=== PATIENT | female | born 1980 | race Caucasian/White ===

== ENCOUNTER → 2018-01-12 | Outpatient (CLI) | payer BC ==
--- NOTE | 2018-01-12 15:46 | RADIOLOGY REPORT (SQ) ---
EXAM DESCRIPTION: NM HIDA SCAN WITH CCK COMPLETED DATE/TIME: 01/12/2018 3:35 pm REASON FOR STUDY: OTHER SPECIFIED DISEASES OF GALLBLADDER K82.8 OTHER SPECIFIED DISEASES OF GALLBLA DDER COMPARISON: None. RADIONUCLIDE AND DOSE: DOSAGE RADIONUCLIDE: 5.37 millicuries Tc99m Mebrofenin. DOSAGE CCK: 1.2 micrograms. DOSAGE MORPHINE: Not required. The route of agent administration: Intravenous TECHNIQUE: Serial imaging right upper quadrant up to 60 minutes following injection of radionuclide. CCK injected after gallbladder visualized. LIMITATIONS: None. FINDINGS: LIVER: Normal visualization without areas of photopenia. INTRAHEPATIC BILE DUCTS: Normal size and no delay in visualization. COMMON BILE DUCT: Normal without dilatation. GALLBLADDER: Normal visualization. Calculated ejection fraction of 75%. Normal range is greater th an 35%. PHYSICAL RESPONSE: Patients presenting complaint was reproduced. OTHER: No other significant finding. IMPRESSION: NORMAL STUDY WITHOUT CYSTIC OR COMMON DUCT OBSTRUCTION. NORMAL GALLBLADDER EJECTION FRA CTION. NO EVIDENCE FOR BILIARY DYSKINESIS. TECHNICAL DOCUMENTATION: JOB ID: [id number] [employer]- All Rights Reserved Reading location - IP/workstation name: [email or web address]
== END ==
LOC: RAD 13:01
PROVIDERS: ATTEND Physician Assistant
DX: K82.8 Other specified diseases of gallbladder (principal)
CPT/HCPCS: 78227; J2805; A9537; Q9969

== ENCOUNTER 2018-08-15 11:34 | Emergency (ER) | payer BC ==
[2018-08-15] MEDS ORDERED: ONDANSETRON HCL INJ/PF 4 MG/2 ML SDV IV ONE (11:54)
--- NOTE | 2018-08-15 11:54 | ER Document Report ---
ED Medical Screen (RME) - General Chief Complaint: Flank Pain Stated Complaint: RIGHT SIDE AND LOW BACK PAIN Time Seen by Provider: 08/15/18 11:42 Primary Care Provider: MOIZ RINCON PA-C [Primary Care Provider] - Follow up as needed Mode of Arrival: Ambulatory Information source: Patient Notes: 38-year-old female presents the emergency department with a 1 week history of right flank pain. Patient states that it is the pain as a sharp and stabbing sensation that starts in the mid back and radiates down into the right lower quadrant. She states that it is constant in nature. She is having associated nausea but denies any vomiting, diarrhea, constipation, dysuria, hematuria. Patient does have a history of sludge in her gallbladder. Patient is not sure if this is related to gallbladder or something else. Patient has history of hysterectomy. I have greeted and performed a rapid initial assessment of this patient. A comprehensive ED assessment and evaluation of the patient, analysis of test results and completion of the medical decision making process will be conducted by additional ED providers. PHYSICAL EXAMINATION: GENERAL: Well-appearing, well-nourished and in no acute distress. HEAD: Atraumatic, normocephalic. EYES: Pupils equal round extraocular movements intact, conjunctiva are normal. ENT: Nares patent NECK: Normal range of motion LUNGS: No respiratory distress Musculoskeletal: Normal range of motion NEUROLOGICAL: Normal speech, normal gait. PSYCH: Normal mood, normal affect. SKIN: Warm, Dry, normal turgor, no rashes or lesions noted. TRAVEL OUTSIDE OF THE [place] IN LAST 30 DAYS: No - Related Data Allergies/Adverse Reactions: No Known Allergies Allergy (Unverified 11/16/12 08:15) Past Medical History Renal/ Medical History: Denies: Hx Peritoneal Dialysis - Immunizations Hx Diphtheria, Pertussis, Tetanus Vaccination: Yes - 11/18/12 Physical Exam - Vital signs Vitals: Temp Pulse Resp BP Pulse Ox 97.7 F 86 18 131/82 H 100 08/15/18 11:42 08/15/18 11:42 08/15/18 11:42 08/15/18 11:42 08/15/18 11:42 Course - Vital Signs Vital signs: Temp Pulse Resp BP Pulse Ox 97.7 F 86 18 131/82 H 100 08/15/18 11:42 08/15/18 11:42 08/15/18 11:42 08/15/18 11:42 08/15/18 11:42 Doctor's Discharge - Discharge Referrals: MOIZ RINCON PA-C [Primary Care Provider] - Follow up as needed
[2018-08-15] MEDS ORDERED: FENTANYL CITRATE INJ/PF 100 MCG/2 ML AMPUL IV ONE ×2 (11:55→13:32)
[2018-08-15 12:30] LABS: ABSOLUTE EOSINOPHILS # (AUTO) 0.1 10^3/uL (0.0-0.6); ABSOLUTE LYMPHOCYTES (AUTO) 1.9 10^3/uL (0.5-4.7); ABSOLUTE MONOCYTES (AUTO) 0.6 10^3/uL (0.1-1.4); BASOPHILS % (AUTO) 0.6 % (0-2); EOSINOPHILS % (AUTO) 1.7 % (0-6); HEMATOCRIT 40.2 % (36.0-47.0); HEMOGLOBIN 13.9 g/dL (12.0-15.5); LYMPHOCYTES % (AUTO) 29.2 % (13-45); MEAN CORPUSCULAR HEMOGLOBIN 31.8 pg (27.0-33.4); MEAN CORPUSCULAR HGB CONC 34.5 g/dL (32.0-36.0); MEAN CORPUSCULAR VOLUME 92 fl (80-97); MONOCYTES % (AUTO) 8.5 % (3-13); PLATELET COUNT 312 10^3/uL (150-450); RED BLOOD COUNT 4.37 10^6/uL (3.72-5.28); RED CELL DISTRIBUTION WIDTH 12.5 % (11.5-14.0); TOTAL CELLS COUNTED % (AUTO) 100 %; WHITE BLOOD COUNT 6.6 10^3/uL (4.0-10.5)
[2018-08-15 12:52] LABS: ALANINE AMINOTRANSFERASE 26 U/L (9-52); ALBUMIN 4.9 g/dL (3.5-5.0); ALKALINE PHOSPHATASE 82 U/L (38-126); ANION GAP 12 (5-19); ASPARTATE AMINO TRANSFERASE 16 U/L (14-36); BILIRUBIN,DIRECT 0.1 mg/dL (0.0-0.4); BILIRUBIN,TOTAL 0.3 mg/dL (0.2-1.3); BLOOD UREA NITROGEN 11 mg/dL (7-20); CALCIUM 9.2 mg/dL (8.4-10.2); CARBON DIOXIDE 27 mmol/L (22-30); CHLORIDE 104 mmol/L (98-107); GLUCOSE 94 mg/dL (75-110); LIPASE 53.2 U/L (23-300); POTASSIUM 4.3 mmol/L (3.6-5.0); SODIUM 142.6 mmol/L (137-145); TOTAL PROTEIN 7.2 g/dL (6.3-8.2)
--- NOTE | 2018-08-15 13:33 | ER Document Report ---
ED General - General Chief Complaint: Flank Pain Stated Complaint: RIGHT SIDE AND LOW BACK PAIN Time Seen by Provider: 08/15/18 11:42 Primary Care Provider: MOIZ RINCON PA-C [Primary Care Provider] - Follow up as needed Mode of Arrival: Ambulatory Notes: 38-year-old female presents the emergency department with a 1 week history of right flank pain. Patient states that it is the pain as a sharp and stabbing sensation that starts in the mid back and radiates down into the right lower quadrant. She states that it is constant in nature. She is having associated nausea but denies any vomiting, diarrhea, constipation, dysuria, hematuria. Patient does have a history of sludge in her gallbladder. Patient is not sure if this is related to gallbladder or something else. Patient has history of hysterectomy. The patient stated she had similar pain last year at this time and there was sludge in her gallbladder but that went away. She states for the last week she has been having increased discomfort and increased nausea. Food does not really make it better or worse. TRAVEL OUTSIDE OF THE [place] IN LAST 30 DAYS: No - Related Data Allergies/Adverse Reactions: No Known Allergies Allergy (Unverified 11/16/12 08:15) Past Medical History - General Information source: Patient - Social History Smoking Status: Never Smoker Family History: Reviewed & Not Pertinent Patient has suicidal ideation: No Patient has homicidal ideation: No Renal/ Medical History: Denies: Hx Peritoneal Dialysis - Immunizations Hx Diphtheria, Pertussis, Tetanus Vaccination: Yes - 11/18/12 Review of Systems - Review of Systems Constitutional: denies: Chills, Fever Cardiovascular: denies: Chest pain Gastrointestinal: Abdominal pain, Nausea. denies: Diarrhea, Vomiting -: Yes All other systems reviewed and negative Physical Exam - Vital signs Vitals: Temp Pulse Resp BP Pulse Ox 97.7 F 86 18 131/82 H 100 08/15/18 11:42 08/15/18 11:42 08/15/18 11:42 08/15/18 11:42 08/15/18 11:42 - Notes Notes: GENERAL_APPEARANCE: well_nourished, alert, cooperative VITALS: reviewed, see vital signs table. HEAD: no_swelling\tenderness on the head. EYES: PERRL, EOMI, conjunctiva_clear. NOSE: no_nasal_discharge. MOUTH: (-)decreased moisture. THROAT: no_tonsilar_inflammation, no_airway_obstruction. no_lymphadenopathy NECK: supple, no_neck_tenderness, (-)thyromegaly. BACK: CVA tenderness, no vesicles or rash noted CHEST_WALL: no_chest_tenderness. LUNGS: no_wheezing, no_rales, no_rhonchi, (-)accessory muscle use, good air exchange bilateral. HEART: normal_rate, normal_rhythm, normal_S1, normal_S2, (-)S3, (-)S4, no_murmur, no_rub. ABDOMEN: normal_BS, soft, upper quadrant_abd_tenderness, (-)guarding, (-)rebou nd, no_organomegaly, no_abd_masses. EXTREMITIES: good pulses in all_extremities, no_swelling\tenderness in the extremities, no_edema. SKIN: warm, dry, good_color, no_rash. MENTAL_STATUS: speech_clear, oriented_X_3, normal_affect, responds_appropriately to questions. Course - Re-evaluation Re-evalutation: 08/15/18 13:30 38-year-old female presents to the ER with right flank and right upper quadrant abdominal pain. Concern if this is kidney stone versus pyelonephritis versus cholecystitis/biliary colic. Patient had sludge last year at this time. Will re-ultrasound her gallbladder. We will get a CT to assess for stone. While the patient treated with pain and nausea medicine. 08/15/18 15:26 Abdomen Ultrasound 08/15/18 13:23 IMPRESSION: No gallstones, gallbladder wall thickening or pericholecystic fluid. Mild prominence of the extrahepatic common bile duct. Nonvisualization of the distal duct. Distal ductal stone or stricture could not be excluded. No right hydronephrosis. Abdomen/Pelvis CT 08/15/18 13:23 IMPRESSION: NO SIGNIFICANT OR ACUTE PROCESS IN THE ABDOMEN OR PELVIS. The patient's lab work was reviewed she has no bilirubin elevation is no liver function test elevations no elevated lipase. The CT of the abdomen pelvis showed no renal stones no significant intra- abdominal pathology. The ultrasound showed no pericholecystic fluid no wall thickening no stones no sludge. There was slight prominence of common bile duct. However there was no liver function elevations or bilirubin elevations to signify an obstruction. I spoke with the patient and spoke about the indications of acute cholecystitis and how that is our indication for emergency surgery at this time. I do not believe the patient is having an episode acute cholecystitis however she may be having biliary colic. The patient will likely need to be seen outpatient by surgery. We will refer her to our on-call surgeon. Further testing may be needed including a HIDA scan or MRI CP. Patient will prescribe Bentyl and Zofran for home. I spoke with her about the limitations of our testing. At this time I do not think she has an acute emergency medical condition requiring surgery however some conditions will declare themselves over time and that if she does not improve in the next 24-72 hours or she feels worse she should return to the ER to allow us to reevaluate her abdomen. She verbalized understanding. - Vital Signs Vital signs: Temp Pulse Resp BP Pulse Ox 97.6 F 79 16 119/79 100 08/15/18 15:06 08/15/18 15:06 08/15/18 15:06 08/15/18 15:06 08/15/18 15:06 - Laboratory Result Diagrams: 08/15/18 12:09 08/15/18 12:09 - Diagnostic Test Radiology reviewed: Reports reviewed Radiology results interpreted by me: 08/15/18 15:28 Laboratory 08/15/18 08/15/18 08/15/18 12:09 12:09 12:09 WBC 6.6 RBC 4.37 Hgb 13.9 Hct 40.2 MCV 92 MCH 31.8 MCHC 34.5 RDW 12.5 Plt Count 312 Seg Neutrophils % 60.0 Lymphocytes % 29.2 Monocytes % 8.5 Eosinophils % 1.7 Basophils % 0.6 Absolute Neutrophils 4.0 Absolute Lymphocytes 1.9 Absolute Monocytes 0.6 Absolute Eosinophils 0.1 Absolute Basophils 0.0 Sodium 142.6 Potassium 4.3 Chloride 104 Carbon Dioxide 27 Anion Gap 12 BUN 11 Creatinine 0.64 Est GFR ( Amer) > 60 Est GFR (Non-Af Amer) > 60 Glucose 94 Calcium 9.2 Total Bilirubin 0.3 Direct Bilirubin 0.1 Neonat Total Bilirubin Not Reportable Neonat Direct Bilirubin Not Reportable Neonat Indirect Bili Not Reportable AST 16 ALT 26 Alkaline Phosphatase 82 Total Protein 7.2 Albumin 4.9 Lipase 53.2 Urine Color STRAW Urine Appearance CLEAR Urine pH 7.0 Ur Specific Ulm 1.010 Urine Protein NEGATIVE Urine Glucose (UA) NEGATIVE Urine Ketones NEGATIVE Urine Blood NEGATIVE Urine Nitrite NEGATIVE Urine Bilirubin NEGATIVE Urine Urobilinogen NEGATIVE Ur Leukocyte Esterase NEGATIVE Urine Bacteria (Auto) TRACE Squamous Epi Cells Auto 4 Urine Mucus (Auto) RARE Urine Ascorbic Acid NEGATIVE Abdomen Ultrasound 08/15/18 13:23 IMPRESSION: No gallstones, gallbladder wall thickening or pericholecystic fluid. Mild prominence of the extrahepatic common bile duct. Nonvisualization of the distal duct. Distal ductal stone or stricture could not be excluded. No right hydronephrosis. Abdomen/Pelvis CT 08/15/18 13:23 IMPRESSION: NO SIGNIFICANT OR ACUTE PROCESS IN THE ABDOMEN OR PELVIS. Discharge - Discharge Clinical Impression: Biliary colic Condition: Good Disposition: HOME, SELF-CARE Instructions: Gallbladder Disease ([facility]), Abdominal Pain ([facility]), Antispasmodics ([facility]) Additional Instructions: Call the on-call surgeon Dr. Escudero for follow-up. May also call [facility] in [place] for surgical follow up [facility] [address] [place] [id number] Monday 8:00 AM - 4:00 PM Monday 8:00 AM - 4:00 PM Monday 8:00 AM - 4:00 PM 8:00 AM - 4:00 PM Monday 8:00 AM - 4:00 PM Monday Closed Monday Closed Prescriptions: Dicyclomine HCl [Bentyl 20 mg Tablet] 20 mg PO QID #40 tablet Ondansetron [Zofran Odt 4 mg Tablet] 1 - 2 tab PO Q4H PRN #15 tab.rapdis PRN Reason: For Nausea/Vomiting Forms: Return to Work Referrals: MOIZ RINCON PA-C [Primary Care Provider] - Follow up as needed PHIL ESCUDERO MD [[employer]] - Follow up as needed
--- NOTE | 2018-08-15 14:01 | RADIOLOGY REPORT (SQ) ---
EXAM DESCRIPTION: CT ABD/PELVIS NO ORAL OR IV COMPLETED DATE/TIME: 08/15/2018 1:36 pm REASON FOR STUDY: R Flank and RUQ PAIN COMPARISON: CT abdomen pelvis 01/11/2009 TECHNIQUE: CT scan of the abdomen and pelvis performed without intravenous or oral contrast. Images reviewed with lung, soft tissue, and bone windows. Reconstructed coronal and sagittal MPR images revi ewed. All images stored on PACS. All CT scanners at this facility use dose modulation, iterative reconstruction, and/or weight based d osing when appropriate to reduce radiation dose to as low as reasonably achievable (ALARA). [facility]: Dose Right [facility]: CareDose [facility]: Dose Right [facility]: Teradose 4D [facility]: Scloby RADIATION DOSE: CT Rad equipment meets quality standard of care and radiation dose reduction techniq ues were employed. CTDIvol: 5.6 mGy. DLP: 297 mGy-cm.mGy. LIMITATIONS: None. FINDINGS: LOWER CHEST: No significant findings. No nodules or infiltrates. NON-CONTRASTED LIVER, SPLEEN, ADRENALS: Evaluation limited by lack of IV contrast. No identified sign ificant masses. PANCREAS: No masses. No peripancreatic inflammatory changes. GALLBLADDER: No identified stones by CT criteria. No inflammatory changes to suggest cholecystitis. RIGHT KIDNEY AND URETER: No suspicious masses. Assessment limited by lack of IV contrast. No signif icant calcifications. No hydronephrosis or hydroureter. LEFT KIDNEY AND URETER: No suspicious masses. Assessment limited by lack of IV contrast. No signifi cant calcifications. No hydronephrosis or hydroureter. AORTA AND RETROPERITONEUM: No aneurysm. No retroperitoneal masses or adenopathy. BOWEL AND PERITONEAL CAVITY: No obvious masses or inflammatory changes. No free fluid. APPENDIX: Normal. PELVIS, BLADDER, AND ABDOMINAL WALL:No abnormal masses. No free fluid. Bladder normal. Post hysterec jeevan BONES: No significant findings. OTHER: No other significant finding. IMPRESSION: NO SIGNIFICANT OR ACUTE PROCESS IN THE ABDOMEN OR PELVIS. COMMENT: Quality ID # [id number]: Final reports with documentation of one or more dose reduction techniques (e.g., Automated exposure control, adjustment of the mA and/or kV according to patient size, use of iterative reconstruction technique) TECHNICAL DOCUMENTATION: JOB ID: [id number] [employer]- All Rights Reserved Reading location - IP/workstation name: [email or web address]-
[2018-08-15 14:21] LABS: APPEARANCE,URINE CLEAR; BILIRUBIN,URINE NEGATIVE (NEGATIVE); COLOR,URINE STRAW; GLUCOSE, URINE NEGATIVE (NEGATIVE); KETONES,URINE NEGATIVE (NEGATIVE); LEUKOCYTE ESTERASE,URINE NEGATIVE (NEGATIVE); NITRITE,URINE NEGATIVE (NEGATIVE); PROTEIN,URINE NEGATIVE (NEGATIVE); UROBILINOGEN,URINE NEGATIVE mg/dL (<2.0)
[2018-08-15 15:11] VITALS: BP 119/79
--- NOTE | 2018-08-15 15:16 | RADIOLOGY REPORT (SQ) ---
EXAM DESCRIPTION: U/S ABDOMEN LIMITED W/O DOP COMPLETED DATE/TIME: 08/15/2018 2:55 pm REASON FOR STUDY: R Flank and RUQ PAIN COMPARISON: 08/15/2018, 01/11/2009 CT abdomen pelvis exams TECHNIQUE: Dynamic and static grayscale images acquired of the abdomen and recorded on PACS. Additio nal selected color Doppler and spectral images recorded. LIMITATIONS: Midline bowel gas FINDINGS: PANCREAS: Midline pancreas unremarkable LIVER: No masses. Echotexture normal. LIVER VASCULATURE: Normal directional flow of the main portal vein and hepatic veins. GALLBLADDER: No stones. Normal wall thickness. No pericholecystic fluid. ULTRASOUND-DETECTED RYDER'S SIGN: Negative. INTRAHEPATIC DUCTS AND COMMON DUCT: No intrahepatic biliary ductal dilatation. Common bile duct at t he bobbi hepatis measures 8 mm in diameter which is prominent. Distal most common duct not well seen due to duodenum gas. Distal ductal stone or stricture could not be excluded. Limitations of this s tudy were discussed with Dr. Mckeon in the emergency room INFERIOR VENA CAVA: Normal flow. AORTA: No aneurysm. RIGHT KIDNEY: Normal size. Normal echogenicity. No solid or suspicious masses. No hydronephrosis. No calcifications. PERITONEAL AND RIGHT PLEURAL SPACE: No ascites or effusions. OTHER: No other significant findings. IMPRESSION: No gallstones, gallbladder wall thickening or pericholecystic fluid. Mild prominence of the extrahepatic common bile duct. Nonvisualization of the distal duct. Distal d uctal stone or stricture could not be excluded. No right hydronephrosis. TECHNICAL DOCUMENTATION: JOB ID: [id number] [employer]- All Rights Reserved Reading location - IP/workstation name: [email or web address]
== END 2018-08-15 16:28 | disposition home or self-care (01) ==
LOC: ER 11:34
DX: K80.50 Calculus of bile duct without cholangitis or cholecystitis without obstruction (principal); R11.0 Nausea
CPT/HCPCS: 99284; 96374; 96375; 36415; 83690; 85025; 80053; 81001; 76705; 74176; J3010; J2405